=== PATIENT | female | born 1995 | race African-American/Black ===

== ENCOUNTER 2018-05-10 20:08 | Emergency (ER) | payer MEDICAID, OTHER ==
[2018-05-11] MEDS ORDERED: diphenhdrAMINE HCL 25 MG CAP PO ONE (02:00)
[2018-05-11] MEDS ORDERED: FAMOTIDINE 20 MG TAB PO ONE (02:00)
== END 2018-05-11 02:47 | disposition home or self-care (01) ==
LOC: ER 20:08
DX: S40.861A Insect bite (nonvenomous) of right upper arm, initial encounter (principal); R62.50 Unspecified lack of expected normal physiological development in childhood; W57.XXXA Bitten or stung by nonvenomous insect and other nonvenomous arthropods, initial encounter; Y93.89 Activity, other specified; Y92.210 Daycare center as the place of occurrence of the external cause; Y99.8 Other external cause status